=== PATIENT | male | born 1965 | race Caucasian/White ===

== ENCOUNTER → 2020-05-25 | Day surgery (SDC) | payer BC ==
[2020-05-20 12:32] LABS: BASOPHILS % (AUTO) 0.3 % (0.0-2.0); EOSINOPHILS % (AUTO) 0.9 % (1.0-6.0); HEMATOCRIT 42.2 % (41-53); HEMOGLOBIN 14.6 g/dL (13.5-17.5); LYMPHOCYTES # (AUTO) 2.8 K/uL (1.0-4.8); LYMPHOCYTES % (AUTO) 34.8 % (22.0-44.0); MEAN CORPUSCULAR HGB CONC 34.6 G/dL (31.0-37.0); MEAN CORPUSCULAR VOLUME 87 fL (80-100); MONOCYTES # (AUTO) 0.4 K/uL (0.1-1.0); MONOCYTES % (AUTO) 5.4 % (2.0-9.0); NEUTROPHILS # (AUTO) 4.7 K/uL (1.8-7.7); NEUTROPHILS % (AUTO) 58.6 % (40.0-70.0); PLATELET COUNT (AUTO) 181 K/uL (150-450); RED BLOOD CELL COUNT(AUTO) 4.86 MIL/uL (4.50-5.90); RED CELL DISTRIBUTION WIDTH 12.7 % (11.5-14.5)
[2020-05-20 12:37] LABS: COVID AG,FIA SOURCE NASOPHARYNGEAL
[2020-05-20 12:45] LABS: ANION GAP 7 mmol/L (8-16); CALCIUM, TOTAL 9.1 mg/dL (8.8-10.5); CARBON DIOXIDE 31 mmol/L (22-29); CHLORIDE 106 mmol/L (98-107); CREATININE 1.01 mg/dL (0.60-1.30); GLOMERULAR FILTR. RATE CALC > 60 mL/min (>60); GLUCOSE,RANDOM 112 mg/dL (70-110); POTASSIUM 3.7 mmol/L (3.5-5.1); SODIUM SERUM 144 mmol/L (136-145); UREA NITROGEN, BLOOD 12 mg/dL (7-18)
[2020-05-20 12:51] LABS: ALANINE AMINOTRANSFERASE 48 U/L (12-78); ALBUMIN 4.3 g/dL (3.4-5.0); ALKALINE PHOSPHATASE 72 U/L (46-116); ASPARTATE AMINOTRANSFERASE 26 U/L (15-37); BILIRUBIN,TOTAL 0.6 mg/dL (0.1-1.0); PROTHROMBIN TIME 10.3 SEC (9.4-11.6); TOTAL PROTEIN, SERUM 7.7 g/dL (6.4-8.2)
[~2020-05-25] MED LIST: ATOR10TA84 PO; CeFAZolin 2 GM/DEXTROSE 50 ML IV ONE; RINGERS SOLUTION,LACTATED 1,000 ML IV ONE
== END | disposition home or self-care (01) ==
LOC: SDS 05:30 → UNDOADMOB 05:35 → 6N 05:35 → UNDOADMOB 05:45 → UNDODISOB 06:55 → EDSTATUS 07:30
PROVIDERS: ATTEND Orthopaedic Surgery Orthopaedic Surgery of the Spine
DX: M51.26 Other intervertebral disc displacement, lumbar region (principal); Z53.8 Procedure and treatment not carried out for other reasons
CPT/HCPCS: 36415; 80053; 85025; 85610; 85730; 87081; 87426; J0690; J7120; 99219; G0378; Z7514